=== PATIENT | female | born 1990 | race Caucasian/White ===

== ENCOUNTER 2019-02-10 14:49 | Emergency (ER) | payer MEDICAID ==
[2019-02-10] MEDS ORDERED: NORMAL SALINE 1000 ML 1,000 ML IV ONE (15:12)
[2019-02-10] MEDS ORDERED: ONDANSETRON HCL INJ/PF 4 MG/2 ML SDV IV ONE (15:12)
--- NOTE | 2019-02-10 15:13 | ER Document Report ---
ED Medical Screen (RME) - General Chief Complaint: Abdominal Pain Stated Complaint: ABDOMINAL PAIN Time Seen by Provider: 02/10/19 15:09 Mode of Arrival: Ambulatory Information source: Patient Notes: Patient presents with 3-day history of nausea vomiting diarrhea. Patient does report some abdominal cramping and gas pain. Patient denies any blood in emesis or stool. Patient reports occasional dizziness and feeling weak. I have greeted and performed a rapid initial assessment of this patient. A comprehensive ED assessment and evaluation of the patient, analysis of test results and completion of the medical decision making process will be conducted by additional ED providers. - Related Data Allergies/Adverse Reactions: adhesive Adverse Reaction (Mild, Verified 02/10/19 15:09) Skin Irritation Physical Exam - Vital signs Vitals: Temp Pulse Resp BP Pulse Ox 97.7 F 88 16 116/67 100 02/10/19 14:50 02/10/19 14:50 02/10/19 14:50 02/10/19 14:50 02/10/19 14:50 - Abdominal Tenderness: Tender - Epigastric, generalized abdominal cramping Course - Vital Signs Vital signs: Temp Pulse Resp BP Pulse Ox 97.7 F 88 16 116/67 100 02/10/19 14:50 02/10/19 14:50 02/10/19 14:50 02/10/19 14:50 02/10/19 14:50
[2019-02-10 15:53] LABS: ABSOLUTE EOSINOPHILS # (AUTO) 0.4 10^3/uL (0.0-0.6); ABSOLUTE LYMPHOCYTES (AUTO) 3.2 10^3/uL (0.5-4.7); ABSOLUTE MONOCYTES (AUTO) 0.8 10^3/uL (0.1-1.4); BASOPHILS % (AUTO) 0.6 % (0-2); HEMATOCRIT 43.1 % (36.0-47.0); HEMOGLOBIN 14.5 g/dL (12.0-15.5); LYMPHOCYTES % (AUTO) 37.7 % (13-45); MEAN CORPUSCULAR HEMOGLOBIN 28.5 pg (27.0-33.4); MEAN CORPUSCULAR HGB CONC 33.6 g/dL (32.0-36.0); MEAN CORPUSCULAR VOLUME 85 fl (80-97); MONOCYTES % (AUTO) 9.7 % (3-13); PLATELET COUNT 234 10^3/uL (150-450); RED BLOOD COUNT 5.09 10^6/uL (3.72-5.28); RED CELL DISTRIBUTION WIDTH 13.3 % (11.5-14.0); TOTAL CELLS COUNTED % (AUTO) 100 %; WHITE BLOOD COUNT 8.4 10^3/uL (4.0-10.5)
[2019-02-10 16:08] LABS: APPEARANCE,URINE CLOUDY; BILIRUBIN,URINE NEGATIVE (NEGATIVE); COLOR,URINE YELLOW; GLUCOSE, URINE NEGATIVE (NEGATIVE); KETONES,URINE TRACE mg/dL (NEGATIVE); LEUKOCYTE ESTERASE,URINE NEGATIVE (NEGATIVE); NITRITE,URINE NEGATIVE (NEGATIVE); PROTEIN,URINE 30 mg/dL (NEGATIVE); URINE SPECIFIC GRAVITY 1.029
[2019-02-10 16:11] LABS: ALBUMIN 4.2 g/dL (3.5-5.0); ALKALINE PHOSPHATASE 57 U/L (38-126); ANION GAP 9 (5-19); ASPARTATE AMINO TRANSFERASE 22 U/L (14-36); BILIRUBIN,DIRECT 0.1 mg/dL (0.0-0.4); BILIRUBIN,TOTAL 0.3 mg/dL (0.2-1.3); BLOOD UREA NITROGEN 8 mg/dL (7-20); CALCIUM 8.8 mg/dL (8.4-10.2); CARBON DIOXIDE 26 mmol/L (22-30); CHLORIDE 107 mmol/L (98-107); GLUCOSE 90 mg/dL (75-110); POTASSIUM 3.6 mmol/L (3.6-5.0); TOTAL PROTEIN 6.8 g/dL (6.3-8.2)
--- NOTE | 2019-02-10 17:03 | ER Document Report ---
ED GI/ - General Chief Complaint: Nausea/Vomiting/Diarrhea Stated Complaint: ABDOMINAL PAIN Time Seen by Provider: 02/10/19 15:09 Primary Care Provider: RUPINDER MERCADO MD [Primary Care Provider] - Follow up as needed Mode of Arrival: Ambulatory Notes: Patient is a 28-year-old female who presents the emergency department with a chief complaint of nausea, vomiting and diarrhea. Patient reports the symptoms have been present for 3 days. Patient reports 2 days ago she did have a temperature of 101. Patient reports chills. Patient states that no one else in her house is sick with similar symptoms but she does have family members with cough and congestion. Patient reports in the past 24 hours she has vomited about 6-7 times and has had liquid diarrhea. Patient denies blood in the emesis or diarrhea. Patient reports generalized abdominal pain. - Related Data Allergies/Adverse Reactions: adhesive Adverse Reaction (Mild, Verified 02/10/19 15:09) Skin Irritation Home Medications: Lexapro Past Medical History - General Information source: Patient - Social History Smoking Status: Current Every Day Smoker Chew tobacco use (# tins/day): No Frequency of alcohol use: Occasional Drug Abuse: None Lives with: Family Family History: None Patient has suicidal ideation: No Patient has homicidal ideation: No - Past Medical History Cardiac Medical History: Reports: None Pulmonary Medical History: Reports: None EENT Medical History: Reports: None Neurological Medical History: Reports: None Endocrine Medical History: Reports: None Renal/ Medical History: Reports: None Malignancy Medical History: Reports: None GI Medical History: Reports: None Musculoskeletal Medical History: Reports None Skin Medical History: Reports None Psychiatric Medical History: Reports: Hx Depression - w/ anxiety Traumatic Medical History: Reports: None Infectious Medical History: Reports: None Surgical Hx: Negative Review of Systems - Review of Systems Constitutional: Chills EENT: No symptoms reported Cardiovascular: No symptoms reported Respiratory: No symptoms reported Gastrointestinal: See HPI Genitourinary: No symptoms reported Female Genitourinary: No symptoms reported Musculoskeletal: No symptoms reported Skin: No symptoms reported Hematologic/Lymphatic: No symptoms reported Neurological/Psychological: No symptoms reported Physical Exam - Vital signs Vitals: Temp Pulse Resp BP Pulse Ox 97.7 F 88 16 116/67 100 02/10/19 14:50 02/10/19 14:50 02/10/19 14:50 02/10/19 14:50 02/10/19 14:50 Interpretation: Normal - Notes Notes: GENERAL: Well-appearing, well-nourished and in no acute distress. HEAD: Atraumatic, normocephalic. EYES: Pupils equal round and reactive to light, extraocular movements intact, sclera anicteric, conjunctiva are normal. ENT: Nares patent, oropharynx clear without exudates. Moist mucous membranes. NECK: Normal range of motion, supple without lymphadenopathy or JVD. LUNGS: Breath sounds clear to auscultation bilaterally and equal. No wheezes rales or rhonchi. HEART: Regular rate and rhythm without murmurs, rubs or gallops. ABDOMEN: Soft, nontender, hyperactive bowel sounds. No guarding, no rebound. No masses appreciated. BACK: No cervical, thoracic, lumbar midline tenderness. No saddle anesthesia, normal distal neurovascular exam. GENITOURINARY: Deferred. EXTREMITIES: Normal range of motion, no pitting or edema. No clubbing or cyanosis. NEUROLOGICAL: Cranial nerves II through XII grossly intact. Normal speech, normal gait. PSYCH: Normal mood, normal affect. SKIN: Warm, Dry, normal turgor, no rashes or lesions noted. Course - Re-evaluation Re-evalutation: 02/10/19 17:03 Upon initial evaluation patient is receiving IV fluids. Patient reports she already is starting to feel better. Patient has not had any vomiting or diarrhea since being in the emergency department. Patient is sipping on her Gatorade. Patient's labs are unremarkable without leukocytosis, alteration in electrolytes or kidney function. Patient symptoms are most likely viral. Patient's abdominal exam was benign. The patient is able to tolerate liquids will discharge the patient with a viral illness and gastroenteritis. - Vital Signs Vital signs: Temp Pulse Resp BP Pulse Ox 97.7 F 88 16 116/67 100 02/10/19 14:50 02/10/19 14:50 02/10/19 14:50 02/10/19 14:50 02/10/19 14:50 - Laboratory Result Diagrams: 02/10/19 15:30 02/10/19 15:30 Laboratory results interpreted by me: 02/10/19 15:15 Urine Protein 30 H Urine Ketones TRACE H Urine Blood MODERATE H Urine Urobilinogen 2.0 H 02/10/19 17:04 Laboratory 02/10/19 02/10/19 02/10/19 15:15 15:30 15:30 WBC 8.4 RBC 5.09 Hgb 14.5 Hct 43.1 MCV 85 MCH 28.5 MCHC 33.6 RDW 13.3 Plt Count 234 Lymph % (Auto) 37.7 [place] % (Auto) 9.7 Eos % (Auto) 5.0 Baso % (Auto) 0.6 Absolute Neuts (auto) 4.0 Absolute Lymphs (auto) 3.2 Absolute Monos (auto) 0.8 Absolute Eos (auto) 0.4 Absolute Basos (auto) 0.0 Seg Neutrophils % 47.0 Sodium 142.2 Potassium 3.6 Chloride 107 Carbon Dioxide 26 Anion Gap 9 BUN 8 Creatinine 0.56 Est GFR ( Amer) > 60 Est GFR (MDRD) Non-Af > 60 Glucose 90 Calcium 8.8 Total Bilirubin 0.3 Direct Bilirubin 0.1 Neonat Total Bilirubin Not Reportable Neonat Direct Bilirubin Not Reportable Neonat Indirect Bili Not Reportable AST 22 ALT 22 Alkaline Phosphatase 57 Total Protein 6.8 Albumin 4.2 Lipase 50.1 Serum HCG, Qual Urine Color YELLOW Urine Appearance CLOUDY Urine pH 6.0 Ur Specific [place] 1.029 Urine Protein 30 H Urine Glucose (UA) NEGATIVE Urine Ketones TRACE H Urine Blood MODERATE H Urine Nitrite NEGATIVE Urine Bilirubin NEGATIVE Urine Urobilinogen 2.0 H Ur Leukocyte Esterase NEGATIVE Urine WBC (Auto) 3 Urine RBC (Auto) 37 Squamous Epi Cells Auto 28 Urine Mucus (Auto) RARE Urine Ascorbic Acid NEGATIVE 02/10/19 15:30 WBC RBC Hgb Hct MCV MCH MCHC RDW Plt Count Lymph % (Auto) [place] % (Auto) Eos % (Auto) Baso % (Auto) Absolute Neuts (auto) Absolute Lymphs (auto) Absolute Monos (auto) Absolute Eos (auto) Absolute Basos (auto) Seg Neutrophils % Sodium Potassium Chloride Carbon Dioxide Anion Gap BUN Creatinine Est GFR ( Amer) Est GFR (MDRD) Non-Af Glucose Calcium Total Bilirubin Direct Bilirubin Neonat Total Bilirubin Neonat Direct Bilirubin Neonat Indirect Bili AST ALT Alkaline Phosphatase Total Protein Albumin Lipase Serum HCG, Qual NEGATIVE Urine Color Urine Appearance Urine pH Ur Specific [place] Urine Protein Urine Glucose (UA) Urine Ketones Urine Blood Urine Nitrite Urine Bilirubin Urine Urobilinogen Ur Leukocyte Esterase Urine WBC (Auto) Urine RBC (Auto) Squamous Epi Cells Auto Urine Mucus (Auto) Urine Ascorbic Acid Discharge - Discharge Clinical Impression: Nausea vomiting and diarrhea, Gastroenteritis Condition: Stable Disposition: HOME, SELF-CARE Additional Instructions: Today he was seen in emergency department for nausea, vomiting and diarrhea. Your lab work was unremarkable. We have given you IV fluids and adequately hydrated you. You do feel much better. Over the next 24 hours would start out with a clear liquid diet. Please use the antinausea medication as prescribed. Afterwards I would advance the diet to bland foods such as mashed potatoes, toast, bananas. Please return to the emergency department if you have any severe abdominal pain, uncontrollable vomiting and diarrhea, pain to the abdomen that is localized to one area or high fever. Gastroenteritis You most likely have gastroenteritis. This is an irritation of the stomach and intestinal tract. It's usually caused by a virus, but can also be caused by bacteria, toxins that cause food poisoning, or excessive alcohol intake. Symptoms may include fever, painful abdominal cramps, nausea, vomiting, and diarrhea. Start with small amounts (two to six ounces) of clear liquids (soft drinks, herb teas, broth, etc). Try to take fluids frequently even if you are vomiting, to prevent dehydration. When liquids are being consumed successfully, advance to small amounts of bland food (mashed potato, toast) for 6 - 12 hours. Gastroenteritis rarely requires medication. It goes away by itself. Use good handwashing so you don't spread germs. Wash underwear in very hot water. If symptoms are severe, talk to the doctor. Call your physician if blood appears in your vomitus or stool, if vomiting lasts longer than 24 hours, if the abdominal pain worsens or becomes localized to one area, or if you develop high fever. Prescriptions: Promethazine HCl [Phenergan 25 mg Tablet] 1 tab PO Q6H PRN #15 tablet PRN Reason: Referrals: RUPINDER MERCADO MD [Primary Care Provider] - Follow up as needed
[2019-02-10] MEDS ORDERED: FAMOTIDINE INJ/PF 20 MG/2 ML SDV IV ONE (17:04)
[2019-02-10] MEDS ORDERED: ONDANSETRON ODT 4 MG TAB (6 TAB/ER DISP) PO PRN (17:04)
[2019-02-10 17:49] VITALS: BP 93/46
== END 2019-02-10 17:49 | disposition home or self-care (01) ==
LOC: ER 14:49
DX: K52.9 Noninfective gastroenteritis and colitis, unspecified (principal); R11.2 Nausea with vomiting, unspecified; R50.9 Fever, unspecified; F17.200 Nicotine dependence, unspecified, uncomplicated
CPT/HCPCS: 99283; 96361; 96374; 36415; 83690; 84703; 85025; 80053; 81001; J7030; S0028

== ENCOUNTER 2019-09-20 11:48 | Emergency (ER) | payer MEDICAID ==
[2019-09-20 12:06] VITALS: BP 109/70
[2019-09-20] MEDS ORDERED: LIDOCAINE 1%/EPINEPHRINE INJ 20 ML VIAL INJ ONE (12:08)
[2019-09-20] MEDS ORDERED: DIPH/PERTUSS(ACELL)/TETANUS VAC/PF 0.5 ML SYR (>=10YO) IM ONE (12:08)
--- NOTE | 2019-09-20 12:10 | ER Document Report ---
HPI - HPI Time Seen by Provider: 09/20/19 12:02 Pain Level: 1 Notes: CHIEF COMPLAINT: Left hand laceration HPI: 29-year-old female presenting with a laceration to the lateral left hand at the base of the index finger. Cut it with a cutting tool while sewing. Denies numbness or tingling in the fingertip. Denies other injuries or complaints ROS: See HPI - all other systems were reviewed and are otherwise negative Constitutional: no fever Integumentary: no rash , + laceration Allergy: no hives Musculoskeletal: + extremity pain or swelling Neurological: no numbness/tingling, no weakness MEDICATIONS: I agree with the patient medications as charted by the RN. ALLERGIES: I agree with the allergies as charted by the RN. PAST MEDICAL HISTORY/PAST SURGICAL HISTORY: Reviewed and agree as charted by RN. SOCIAL HISTORY: Reviewed and agree as charted by RN. FAMILY HISTORY: No significant familial comorbid conditions directly related to patient complaint EXAM: Reviewed vital signs as charted by RN. CONSTITUTIONAL: Alert and oriented and responds appropriately to questions. Well-appearing; well-nourished HEAD: Normocephalic; atraumatic EYES: Conjunctivae clear, sclerae non-icteric ENT: normal nose; no rhinorrhea; moist mucous membranes NECK: Supple without meningismus CARD: symmetric distal pulses RESP: Normal chest excursion without splinting or tachypnea ABD/GI: non-distended BACK: The back appears normal EXT: Normal ROM in all joints; non-tender to palpation; no cyanosis, no effusions, no edema. There is a 1 cm laceration on the radial side of the proximal aspect of the right index finger overlying the MCP region no visible tendon injury full range of motion without restriction. Sensation is intact in the distal tip of the finger with capillary refill less than 3 seconds SKIN: Normal color for age and race; warm; dry; good turgor NEURO: Moves all extremities equally; Motor and sensory function intact PSYCH: The patient's mood and manner are appropriate. Grooming and personal hygiene are appropriate. MDM: 29-year-old female with a laceration to the right index finger will require sutures to close - REPRODUCTIVE Reproductive: DENIES: : Past Medical History - Social History Smoking Status: Current Every Day Smoker Chew tobacco use (# tins/day): No Frequency of alcohol use: Social Drug Abuse: None Family History: None Patient has homicidal ideation: No Psychiatric Medical History: Reports: Hx Depression - w/ anxiety Course - Vital Signs Vital signs: Temp Pulse Resp BP Pulse Ox 98.9 F 85 16 109/70 100 09/20/19 12:05 09/20/19 12:05 09/20/19 12:05 09/20/19 12:05 09/20/19 12:05 Procedures - Laceration/Wound Repair Left Anterior Hand Time completed: 12:41 Wound length (cm): 1 Wound's Depth, Shape: Superficial, Linear Anesthetic type: 1% Lidocaine w/epi Volume Anesthetic (mLs): 1 Wound explored: Clean, No foreign body removed Irrigated w/ Saline (mLs): 100 Wound Repaired With: Sutures Suture Size/Type: 5:0, Prolene Number of Sutures: 3 Layer Closure?: No Post-procedure wound care: Sterile dressing applied Post-procedure NV exam normal: Yes Complications: No Discharge - Discharge Clinical Impression: Laceration of hand Qualifiers: Encounter type: initial encounter Foreign body presence: without foreign body Laterality: left Qualified Code(s): S61.412A - Laceration without foreign body of left hand, initial encounter Condition: Stable Disposition: HOME, SELF-CARE Additional Instructions: Motrin or Tylenol for pain. Sutures out as directed, 10 days Keep the area as clean and dry as possible applying antibiotic ointment and dressing daily. Return for any redness, discharge, swelling or signs of infection. Referrals: RUPINDER MERCADO MD [EMERITUS] - Follow up as needed
== END 2019-09-20 12:45 | disposition home or self-care (01) ==
LOC: ER 11:48
DX: S61.211A Laceration without foreign body of left index finger without damage to nail, initial encounter (principal); W26.8XXA Contact with other sharp object(s), not elsewhere classified, initial encounter; Y93.89 Activity, other specified; F17.200 Nicotine dependence, unspecified, uncomplicated; Z23 Encounter for immunization
CPT/HCPCS: 99282; 90471; 90715; 12001; J3490

== ENCOUNTER 2020-03-15 01:09 | Emergency (ER) | payer MEDICAID ==
[2020-03-15 01:20] VITALS: BP 132/76
== END 2020-03-15 06:11 | disposition left against medical advice (07) ==
LOC: ER 01:09
DX: Z53.21 Procedure and treatment not carried out due to patient leaving prior to being seen by health care provider (principal)